=== PATIENT | male | born 1950 | race Caucasian/White ===

== ENCOUNTER 2021-12-09 16:32 | Inpatient (IN) | payer MEDICARE, BC ==
[2021-12-09] MEDS ORDERED: Ondansetron 4 MG Tab.DIS PO PRN (17:35)
[2021-12-09] MEDS ORDERED: Acetaminophen 325 MG Tab PO PRN (17:35)
[2021-12-09] MEDS ORDERED: Losartan 50 MG Tab PO ONE (17:42)
[2021-12-09] MEDS: Carvedilol 3.125 MG Tab PO SCH (18:26)
[2021-12-09] MEDS: Potassium Chloride 20 MEQ Tab.ER PO SCH (18:29)
[2021-12-09] MEDS: Furosemide 40 MG/4 ML VIAL IVPUSH SCH (18:29)
[2021-12-09] MEDS: Heparin Sodium 5,000 Units/ML Vial SUBCUT SCH (18:29)
[2021-12-09] MEDS: atorvaSTATin 40 MG Tab PO SCH (20:17)
[2021-12-10] MEDS: Heparin Sodium 5,000 Units/ML Vial SUBCUT SCH ×3 (01:14→17:22)
[2021-12-10] MEDS: Furosemide 40 MG/4 ML VIAL IVPUSH SCH ×3 (01:14→17:23)
[2021-12-10 07:45] LABS: ANION GAP 11.8 meq/L (7-15)
[2021-12-10] MEDS: Aspirin 81 MG Tab.Chew PO SCH (08:31)
[2021-12-10] MEDS: Potassium Chloride 20 MEQ Tab.ER PO SCH (08:31)
[2021-12-10] MEDS: Carvedilol 3.125 MG Tab PO SCH ×2 (08:31→17:22)
[2021-12-10] MEDS: Levothyroxine 50 MCG Tab PO SCH (08:32)
[2021-12-10] MEDS: Sodium Chloride 0.9% 10 ML Syringe FLUSH PRN ×2 (09:39→17:23)
[2021-12-10] MEDS: atorvaSTATin 40 MG Tab PO SCH (21:02)
[2021-12-11] MEDS: Furosemide 40 MG/4 ML VIAL IVPUSH SCH ×3 (02:09→17:33)
[2021-12-11] MEDS: Heparin Sodium 5,000 Units/ML Vial SUBCUT SCH ×3 (02:10→17:33)
[2021-12-11] MEDS: Aspirin 81 MG Tab.Chew PO SCH (07:44)
[2021-12-11] MEDS: Levothyroxine 50 MCG Tab PO SCH (07:44)
[2021-12-11] MEDS: Potassium Chloride 20 MEQ Tab.ER PO SCH (07:44)
[2021-12-11] MEDS: Carvedilol 3.125 MG Tab PO SCH ×2 (07:44→17:32)
[2021-12-11] MEDS: Sodium Chloride 0.9% 10 ML Syringe FLUSH PRN ×2 (10:25→17:33)
[2021-12-11] MEDS: atorvaSTATin 40 MG Tab PO SCH (19:36)
[2021-12-11] MEDS: Polyethylene Glycol 3350 Powder 17 GM Packet PO PRN (19:50)
[2021-12-12] MEDS: Heparin Sodium 5,000 Units/ML Vial SUBCUT SCH ×3 (01:20→19:23)
[2021-12-12] MEDS: Furosemide 40 MG/4 ML VIAL IVPUSH SCH ×3 (01:21→19:23)
[2021-12-12] MEDS: Aspirin 81 MG Tab.Chew PO SCH (07:26)
[2021-12-12] MEDS: Potassium Chloride 20 MEQ Tab.ER PO SCH (07:26)
[2021-12-12] MEDS: Carvedilol 3.125 MG Tab PO SCH ×2 (07:26→19:22)
[2021-12-12] MEDS: Levothyroxine 50 MCG Tab PO SCH (07:26)
[2021-12-12 08:07] LABS: CHLORIDE,CL 105 mmol/L (98-107); SODIUM,NA 144 mmol/L (136-145)
[2021-12-12 08:09] LABS: ANION GAP 15.3 meq/L (7-15); ESTIMATED GFR 49 mL/min (>=60)
[2021-12-12] MEDS: Sodium Chloride 0.9% 10 ML Syringe FLUSH PRN (10:40)
[2021-12-12] MEDS: atorvaSTATin 40 MG Tab PO SCH (19:22)
[2021-12-12] MEDS: Polyethylene Glycol 3350 Powder 17 GM Packet PO PRN (21:26)
[2021-12-13] MEDS: Heparin Sodium 5,000 Units/ML Vial SUBCUT SCH (01:09)
[2021-12-13] MEDS: Furosemide 40 MG/4 ML VIAL IVPUSH SCH (01:10)
[2021-12-13] MEDS: Carvedilol 3.125 MG Tab PO SCH (08:05)
[2021-12-13] MEDS: Aspirin 81 MG Tab.Chew PO SCH (08:05)
[2021-12-13] MEDS: Levothyroxine 50 MCG Tab PO SCH (08:05)
[2021-12-13] MEDS: Potassium Chloride 20 MEQ Tab.ER PO SCH (08:05)
[2021-12-13 08:08] LABS: CHLORIDE,CL 103 mmol/L (98-107); SODIUM,NA 142 mmol/L (136-145)
[2021-12-13 08:10] LABS: ANION GAP 16.1 meq/L (7-15); ESTIMATED GFR 49 mL/min (>=60)
== END 2021-12-13 08:28 | disposition home or self-care (01) | DRG 291 ==
LOC: LL.MS 16:32
PROVIDERS: ADMIT Hospitalist; ATTEND Hospitalist
DX: I11.0 Hypertensive heart disease with heart failure (principal); I50.21 Acute systolic (congestive) heart failure; J96.01 Acute respiratory failure with hypoxia; Z68.43 Body mass index [BMI] 50.0-59.9, adult; Z66 Do not resuscitate; E78.00 Pure hypercholesterolemia, unspecified; E03.9 Hypothyroidism, unspecified; I27.20 Pulmonary hypertension, unspecified; E78.2 Mixed hyperlipidemia; E66.01 Morbid (severe) obesity due to excess calories; Z86.16 Personal history of COVID-19
CPT/HCPCS: 36415; 80048; 80053; 83735; 85027; A9270-GY; J1644; J1940; J3490

== ENCOUNTER 2021-12-15 07:22 | Emergency (ER) | payer MEDICARE, BC ==
[2021-12-15] MEDS ORDERED: EPINEPHrine 1:10,000 1 MG/10 ML Syringe IVPUSH ONE ×3 (07:34→07:38)
[2021-12-15] MEDS ORDERED: EPINEPHrine 1:10,000 1 MG/10 ML Syringe ONE (09:23)
== END 2021-12-15 10:15 | disposition expired ==
LOC: LL.ED 07:22
DX: I46.9 Cardiac arrest, cause unspecified (principal)
CPT/HCPCS: 92950; 99285-25; J0171